=== PATIENT | male | born 1985 | race Caucasian/White ===

== ENCOUNTER 2017-11-16 09:19 | Emergency (ER) | payer OTHER ==
[~2017-11-16] VITALS: Ht 172.7 cm; Wt 83.9 kg
[~2017-11-16 09:19] MED LIST: ALBUTEROL2.5 MG/3 M INH; INSPIRATION1 EACH MISC; PREDNISONE20 MG PO; PROVENTIL HFA6.7 GM INH
== END 2017-11-16 10:07 | disposition home or self-care (01) ==
LOC: ED 09:19
DX: R09.89 Other specified symptoms and signs involving the circulatory and respiratory systems (principal)

== ENCOUNTER 2020-06-01 04:58 | Emergency (ER) | payer OTHER ==
[~2020-06-01] VITALS: Ht 175.3 cm; Wt 90.7 kg
[2020-06-01] MEDS ORDERED: PREDNISONE20 MG PO (05:32)
== END 2020-06-01 07:13 | disposition home or self-care (01) ==
LOC: ED 04:58
DX: J45.902 Unspecified asthma with status asthmaticus (principal); Z20.828 Contact with and (suspected) exposure to other viral communicable diseases
CPT/HCPCS: 71045; 99285-25; C9803; J7512; U0003

== ENCOUNTER 2020-11-19 08:37 | Emergency (ER) | payer OTHER ==
[~2020-11-19] VITALS: Ht 175.3 cm; Wt 90.7 kg
[2020-11-19] MEDS ORDERED: VENTOLIN HFA18 GM INH (09:25)
--- NOTE | 2020-11-19 13:35 | EKG ---
[facility] [address] [facility] [place] [address] Signed Normal sinus rhythm Normal ECG No previous ECGs available Confirmed by MELY RBOERTS MD ([id number]) on 11/19/2020 1:35:04 PM Electronically Signed By: MELY ROBERTS MD 11/19/20 1335 PATIENT NAME: KELSEA OROSCO ALLYWALODRASHEED Electrocardiogram DATE OF : 83 PHYSICIAN: MELY ROBERTS MD REPORT #: [id number] REPORT IS CONFIDENTIAL AND NOT TO BE RELEASED WITHOUT AUTHORIZATION
== END 2020-11-19 09:44 | disposition home or self-care (01) ==
LOC: ED 08:37
DX: J45.901 Unspecified asthma with (acute) exacerbation (principal); Z79.52 Long term (current) use of systemic steroids
CPT/HCPCS: 93005; 93010; 99284-25

== ENCOUNTER 2021-09-21 19:22 | Emergency (ER) | payer OTHER ==
[~2021-09-21] VITALS: Ht 175.3 cm; Wt 86.6 kg
[~2021-09-21 19:22] MED LIST changes: +VENTOLIN HFA18 GM INH
[2021-09-21] MEDS ORDERED: POTASSIUM CHLO20 ME1 PO (21:22)
== END 2021-09-21 21:46 | disposition home or self-care (01) ==
LOC: ED 19:22
DX: J10.1 Influenza due to other identified influenza virus with other respiratory manifestations (principal); E87.6 Hypokalemia; J45.909 Unspecified asthma, uncomplicated; Z20.822 Contact with and (suspected) exposure to COVID-19
CPT/HCPCS: 36415; 71045; 80053; 81001; 83605; 85025; 87040; 99283-25; A9270; C9803; J7030; U0003

== ENCOUNTER 2023-11-24 05:28 | Emergency (ER) | payer SELFPAY ==
[~2023-11-24] VITALS: Ht 175.3 cm; Wt 88.0 kg
[~2023-11-24 05:28] MED LIST changes: +POTASSIUM CHLO20 ME1 PO
[2023-11-24] MEDS ORDERED: methylPREDNISolone SOD SUCC 125 MG/2 ML VIAL IV ONE (05:45)
[2023-11-24] MEDS ORDERED: ALBUTEROL/IPRATROPIUM 3 ML NEB INH ONE (05:45)
[2023-11-24] MEDS ORDERED: VENTOLIN HFA18 GM INH (06:06)
[2023-11-24] MEDS ORDERED: ALBUTEROL SULFATE 8 GM HOME.PACK INH ONE (06:15)
[2023-11-24] MEDS ORDERED: INHALER, ASSIST DEVICES 1 EACH SPACER MISC ONE (06:15)
[2023-11-24] MEDS ORDERED: methylPREDNISolone 4 MG HOME.PACK PO ONE (06:15)
[2023-11-24 06:37] VITALS: BP 126/90
== END 2023-11-24 06:41 | disposition home or self-care (01) ==
LOC: ED 05:28
DX: J45.901 Unspecified asthma with (acute) exacerbation (principal)
CPT/HCPCS: 71045; 94640; 94664; 96374; 99285-25; J2919